=== PATIENT | female | born 1995 | race African-American/Black ===

== ENCOUNTER 2019-10-24 13:21 | Emergency (ER) | payer OTHER, SELFPAY ==
[2019-10-24] MEDS ORDERED: Ketorolac Tromethamine 30 MG/ML VIAL ONE (15:41)
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
== END 2019-10-24 17:47 | disposition home or self-care (01) ==
LOC: ERS 13:21
DX: S09.90XA Unspecified injury of head, initial encounter (principal); M54.2 Cervicalgia; F41.9 Anxiety disorder, unspecified; V49.40XA Driver injured in collision with unspecified motor vehicles in traffic accident, initial encounter
CPT/HCPCS: 70450; 72125; 96372; J1885